=== PATIENT | female | born 1970 | race Caucasian/White ===

== ENCOUNTER 2016-12-26 22:04 | Observation (INO) | payer BC ==
[~2016-12-26] VITALS: Ht 182.9 cm; Wt 115.5 kg
[~2016-12-26 22:04] MED LIST: PLEXUS DRINK PO
[2016-12-26 22:43] LABS: HEMATOCRIT 39.1 % (36.0-46.0); MCH 29.3 PG (29.0-34.0); MCHC 33.5 G/DL (30.0-36.0); MCV 87.5 FL (83-99); MEAN PLAT.VOLUME 8.8 uM^3 (9.5-12.4); PLATELET COUNT 274 K/uL (156-360); RBC DIS.WIDTH-CV 12.3 % (11.8-14.6); RBC DIS.WIDTH-SD 39.3 % (39-53); RED BLOOD COUNT 4.47 M/uL (3.80-5.20)
[2016-12-26 22:52] LABS: CHLORIDE 106 mEq/L (99-109); POTASSIUM 3.9 mEq/L (3.7-5.4); SODIUM 136 mEq/L (136-147)
[2016-12-26 22:54] LABS: GLUCOSE 108 mg/dL (70-99)
[2016-12-26 22:55] LABS: ANION GAP 8 MEQ/L (2-14)
[2016-12-26 22:56] LABS: TOTAL BILIRUBIN 0.7 mg/dL (0.0-1.0)
[2016-12-26 22:58] LABS: ALKALINE PHOSPHATASE 85 IU/L (3-129); GFR ESTIMATE (CALCULATED) > 59 mL/min/
[2016-12-26 22:59] LABS: UREA NITROGEN (BUN) 10 mg/dL (9-23)
[2016-12-26 23:01] LABS: LIPASE 16 U/L (1.0-51.0)
[2016-12-26 23:10] LABS: QUANTITATIVE HCG < 4.0 MIU/ML
[2016-12-27 03:48] LABS: ADD MIUA? NO; BILIRUBIN NEGATIVE; BLOOD NEGATIVE; COLOR YELLOW ((YELLOW)); GLUCOSE (STRIP) NEGATIVE; KETONES NEGATIVE; LEUKOCYTES NEGATIVE; NITRITE NEGATIVE; PROTEIN (STRIP) NEGATIVE; SPECIFIC GRAVITY 1.011 (1.000-1.030); UCUL ADDED? NO; UROBILINOGEN 0.2 MG/DL (0.2-1.0)
[2016-12-27] MEDS ORDERED: IBUPROFEN800 MG PO (04:43)
[2016-12-27] MEDS ORDERED: ENDOCET 5-3251 EACH PO (04:43)
[2016-12-27 08:10] VITALS: BP 119/58
[2016-12-27 11:38] VITALS: BP 100/57
== END 2016-12-27 16:09 | disposition home or self-care (01) ==
LOC: EME 22:04 → EDOF 12-27 04:09 → ENRESERV 12-27 04:28 → 2EAST 12-27 08:16
PROC: 0UT14ZZ Resection of Left Ovary, Percutaneous Endoscopic Approach (ICD-10-PCS; principal; 2016-12-27)
DX: N83.512 Torsion of left ovary and ovarian pedicle (principal); E28.2 Polycystic ovarian syndrome; N83.8 Other noninflammatory disorders of ovary, fallopian tube and broad ligament; K66.1 Hemoperitoneum; R79.89 Other specified abnormal findings of blood chemistry; M79.7 Fibromyalgia; K58.9 Irritable bowel syndrome, unspecified; G47.33 Obstructive sleep apnea (adult) (pediatric); Z90.710 Acquired absence of both cervix and uterus
CPT/HCPCS: 74177; 76856; 80053; 81003; 83690; 84702; 85027; 86850; 86900; 86901; 88305; 99281; 99285; G0378; J0330; J1100; J1170; J1885; J2270; J2405; J2710; J3010; J7120